=== PATIENT | female | born 1935 | race Caucasian/White ===

== ENCOUNTER 2016-07-06 05:42 | Emergency (ER) | payer MEDICARE, OTHER ==
[2016-07-06 06:21] LABS: BASOPHIL 0.6 % (0-2); EOSINOPHIL 5.8 % (0-7); HCT 45.2 % (37.0-47.0); HGB 15.3 g/dl (12.5-16.0); LYMPHOCYTE 30.8 % (15-48); MCH 30.7 pg (25.0-31.0); MCHC 33.8 g/dL (32.0-36.0); MCV 90.6 fL (78.0-100.0); MONOCYTE 11.3 % (0-12); MPV 10.6 fL (6.0-9.5); NEUTROPHIL 51.5 % (41-80); PLT 195 K/uL (150-400); RBC 4.99 M/uL (4.20-5.40); RDW 13.6 % (11.5-14.0); WBC 6.7 K/uL (4.0-10.5)
[2016-07-06 06:37] LABS: ALBUMIN 4.1 g/dL (3.4-4.8); BILIRUBIN - TOTAL 0.7 mg/dL (0.1-1.0); CREATININE 1.1 mg/dL (0.5-1.0); GLOBULIN (CALCULATION) 2.6 g/dL (2.2-4.2); POTASSIUM 3.8 mmol/L (3.5-5.1); TOTAL PROTEIN 6.7 g/dL (6.4-8.3)
[2016-07-06 06:58] LABS: BILIRUBIN NEGATIVE (NEGATIVE); BLOOD TRACE-INTACT Ery/uL (NEGATIVE); CLARITY CLOUDY (CLEAR); COLOR YELLOW (YELLOW); GLUCOSE (U) NORMAL (NORMAL); KETONE (U) NEGATIVE (NEGATIVE); LEUKOCYTES 1+ Leu/uL (NEGATIVE); NITRITE NEGATIVE (NEGATIVE); PROTEIN NEGATIVE (NEGATIVE); SPECIFIC GRAVITY 1.015 (1.001-1.030); UROBILINOGEN 0.2 mg/dL (0.2-1.0)
[2016-07-06 07:06] LABS: AMORPHOUS URATES CRYSTALS MODERATE
== END 2016-07-06 15:22 | disposition home or self-care (01) ==
LOC: FER 05:42
PROVIDERS: Emergency Medicine Emergency Medical Services
DX: H83.09 Labyrinthitis, unspecified ear (principal); Z86.73 Personal history of transient ischemic attack (TIA), and cerebral infarction without residual deficits; Z90.710 Acquired absence of both cervix and uterus; Z88.8 Allergy status to other drugs, medicaments and biological substances; Z79.899 Other long term (current) drug therapy
CPT/HCPCS: 36415; 70450; 70551; 80053; 81001; 85025; 86140; 87088; 93005; J2405; J3360

== ENCOUNTER 2021-05-07 10:22 | Emergency (ER) | payer MEDICARE, OTHER ==
[~2021-05-07 10:22] MED LIST: OS-CAL500 MG PO; PERCOCET 5-3251 EACH PO; PRAVASTATIN SOD80 MG PO; PRILOSEC20 MG PO; PROLIA60 MG/1 ML SC; REQUIP1 MG PO; VITAMIN D1000 UNIT PO
[2021-05-07 11:12] LABS: INR 1.11 (0.9-1.2); PROTHROMBIN TIME 13.7 SECONDS (11.8-13.4); PTT 25.8 SECONDS (24.4-34.7)
[2021-05-07 11:16] LABS: BASOPHIL 0.5 % (0-2); EOSINOPHIL 10.3 % (0-7); HCT 31.1 % (37.0-47.0); HGB 9.4 g/dl (12.5-16.0); LYMPHOCYTE 19.9 % (15-48); MCH 23.5 pg (25.0-31.0); MCHC 30.2 g/dL (32.0-36.0); MCV 77.8 fL (78.0-100.0); MPV 10.6 fL (6.0-9.5); NEUTROPHIL 58.1 % (41-80); NRBC 0; PLT 263 K/uL (150-400); RDW 14.9 % (11.5-14.0); WBC 8.6 K/uL (4.0-10.5)
[2021-05-07 11:23] LABS: IRON % SATURATION 6.5 %SAT (20-50)
[2021-05-07 12:18] LABS: ALBUMIN 3.4 g/dL (3.4-5.0); ALKALINE PHOSHATASE 82 U/L (46-116); ALT 23 U/L (14-59); AST 16 U/L (15-37); BILIRUBIN - TOTAL 0.5 mg/dL (0.2-1.0); BUN 25 mg/dL (7-18); BUN/CREAT RATIO (CALC) 26.9 RATIO; CHLORIDE 106 mmol/L (98-107); CO2 (BICARBONATE) 26 mmol/L (21-32); CPK 73 U/L (26-192); CREATININE 0.93 mg/dL (0.51-0.95); GLOBULIN (CALCULATION) 3.4 g/dL; GLUCOSE 78 mg/dL (74-106); LDH 234 U/L (81-234); MAGNESIUM 1.9 mg/dL (1.8-2.4); POTASSIUM 3.4 mmol/L (3.5-5.1); TOTAL PROTEIN 6.8 g/dL (6.4-8.2); URIC ACID 5.6 mg/dL (2.6-6.2)
[2021-05-07 12:19] LABS: C-REACTIVE PROTEIN < 0.20 mg/dL (<=0.90)
[2021-05-07 12:28] LABS: BILIRUBIN NEGATIVE (NEGATIVE); BLOOD NEGATIVE Ery/uL (NEGATIVE); CLARITY CLEAR (CLEAR); COLOR YELLOW (YELLOW); GLUCOSE (U) NORMAL (NORMAL); LEUKOCYTES 3+ Leu/uL (NEGATIVE); NITRITE NEGATIVE (NEGATIVE); PROTEIN NEGATIVE (NEGATIVE); SPECIFIC GRAVITY 1.025 (1.001-1.030); UROBILINOGEN 0.2 mg/dL (0.2-1.0); pH 5.5 (5.0-9.0)
[2021-05-07 13:53] LABS: BACTERIA 2+
[2021-05-07] MEDS ORDERED: HYDROXYZINE HCL25 MG PO (14:56)
[2021-05-07] MEDS ORDERED: KEFLEX250 MG PO (14:57)
== END 2021-05-07 15:35 | disposition home or self-care (01) ==
LOC: FER 10:22
PROVIDERS: Emergency Medicine
DX: L29.9 Pruritus, unspecified (principal); N39.0 Urinary tract infection, site not specified; E61.1 Iron deficiency; Z88.6 Allergy status to analgesic agent; Z88.1 Allergy status to other antibiotic agents; Z88.2 Allergy status to sulfonamides; Z88.8 Allergy status to other drugs, medicaments and biological substances
CPT/HCPCS: 36415; 80053; 81001; 82550; 82728; 83540; 83550; 83605; 83615; 83735; 84145; 84439; 84443; 84550; 85025; 85610; 85730; 86140; J2930

== ENCOUNTER 2021-11-08 22:57 | Emergency (ER) | payer MEDICARE, OTHER ==
[~2021-11-08 22:57] MED LIST changes: +HYDROXYZINE HCL25 MG PO; +KEFLEX250 MG PO
[2021-11-08 23:19] LABS: HCT 29.4 % (37.0-47.0); LYMPHOCYTE 22.9 % (15-48); MCH 22.4 pg (25.0-31.0); MCHC 30.6 g/dL (32.0-36.0); MCV 73.1 fL (78.0-100.0); MONOCYTE 9.2 % (0-12); MPV 10.9 fL (6.0-9.5); NEUTROPHIL 58.7 % (41-80); NRBC 0; PLT 308 K/uL (150-400); RBC 4.02 M/uL (4.20-5.40); RDW 17.6 % (11.5-14.0)
[2021-11-08 23:44] LABS: ALBUMIN 3.3 g/dL (3.4-5.0); BILIRUBIN - TOTAL 0.2 mg/dL (0.2-1.0); BUN/CREAT RATIO (CALC) 14.2 RATIO; CREATININE 1.34 mg/dL (0.51-0.95); GLOBULIN (CALCULATION) 3.5 g/dL; POTASSIUM 3.8 mmol/L (3.5-5.1); TOTAL PROTEIN 6.8 g/dL (6.4-8.2)
[2021-11-09 00:29] LABS: CORONAVIRUS 2019 SARS-COV-2 NEGATIVE (NEGATIVE); INFLUENZA A NAA NEGATIVE (NEGATIVE)
[2021-11-09 02:25] LABS: INR 1.09 (0.9-1.2); PROTHROMBIN TIME 13.8 SECONDS (11.9-13.9); PTT 28.9 SECONDS (24.9-34.6)
[2021-11-09 02:26] LABS: D-DIMER 1.2 ug/mLFEU (0.00-0.41)
== END 2021-11-09 05:15 | disposition other institution (70) ==
LOC: FER 22:57
PROVIDERS: Emergency Medicine
DX: I21.4 Non-ST elevation (NSTEMI) myocardial infarction (principal); Z20.822 Contact with and (suspected) exposure to COVID-19; Z82.49 Family history of ischemic heart disease and other diseases of the circulatory system; Z88.2 Allergy status to sulfonamides
CPT/HCPCS: 36415; 71045; 71275; 80053; 83880; 84484; 85025; 85379; 85610; 85730; 93005; J1644; J2270; Q9967; U0002